=== PATIENT | female | born 1960 | race Caucasian/White ===

== ENCOUNTER 2024-07-05 12:47 | Inpatient (IN) ==
[~2024-07-05 12:47] MED LIST: Naloxone 0.4 mg VIAL 0.4 mg/ml 1 ml VIAL IV PRN; Ondansetron 4 mg VIAL 2 MG/ML 2 ml VIAL IV PRN
[2024-07-05] MEDS ORDERED: ceFAZolin 2 GM PREMIX 2 GM/50 ML BAG ONE (13:09)
[2024-07-05] MEDS ORDERED: Tranexamic Acid 1 GM/100ML BAG 2,000 MG/200 ML BAG IV ONE (13:09)
[2024-07-05] MEDS ORDERED: ROPIVACAINE 5 MG/ML 30 ML BTL (0.5%) ONE ×2 (13:40→14:15)
[2024-07-05] MEDS ORDERED: Dexamethasone IV 4 MG/ML VIAL 1 ml VIAL ONE ×2 (13:41→14:11)
[2024-07-05] MEDS ORDERED: fentaNYL 100 mcg/2 ml 50 MCG/ML VIAL ONE ×4 (13:41→17:42)
[2024-07-05] MEDS ORDERED: Midazolam 2 mg/2 ml VIAL 1 mg/ml 2 ml VIAL (2 mg) ONE ×2 (13:41→14:11)
[2024-07-05] MEDS ORDERED: ceFAZolin 1 GM in Dextrose 1 GM/50 ML BAG ONE (13:44)
[2024-07-05 13:51] LABS: Rapid COVID-19 Molecular Undetected (Undetected)
[2024-07-05] MEDS ORDERED: Lidocaine 2% PF 5 ML VIAL ONE ×2 (14:10→17:10)
[2024-07-05] MEDS ORDERED: Ondansetron 4 mg VIAL 2 MG/ML 2 ml VIAL ONE (14:11)
[2024-07-05] MEDS ORDERED: KETAMINE HCL 10 MG/ML 20 ml VIAL (200 MG) ONE (15:06)
[2024-07-05] MEDS ORDERED: Rocuronium 50 mg VIAL 10 mg/ml 5 ml VIAL (50 mg) ONE (15:42)
[2024-07-05] MEDS ORDERED: Propofol 10 MG/ML 20 ML BTL ONE (16:36)
[2024-07-05] MEDS ORDERED: Ondansetron 4 mg VIAL 2 MG/ML 2 ml VIAL IV PRN (16:37)
[2024-07-05] MEDS ORDERED: Calcium Carb (TUMS) 500 mg CHEW TAB PO PRN (16:37)
[2024-07-05] MEDS ORDERED: Lactulose 30 ml UDC PO PRN (16:37)
[2024-07-05] MEDS ORDERED: Magnesium Hydroxide LIQ 30 ML UDC PO PRN (16:37)
[2024-07-05] MEDS ORDERED: Morphine 2 MG/ML SYRINGE IV PRN (16:37)
[2024-07-05] MEDS: fentaNYL 100 mcg/2 ml 50 MCG/ML VIAL IV PRN (17:43)
[2024-07-05] MEDS ORDERED: Albuterol HFA INHALER 8 gm MDI INH PRN (18:06)
[2024-07-05] MEDS ORDERED: Dextrose 50% Syringe 50 ml 25 GM/50 ML SYRINGE IV PUSH PRN (18:08)
[2024-07-05] MEDS: Buffered Lidocaine 1% SYRIN 1 ml INTRADERM ONE (18:44)
[2024-07-05] MEDS: Acetaminophen IV 1 GM/100ML 1,000 MG/100 ML BAG IV ONE (18:44)
[2024-07-05] MEDS: Lactated Ringers 1000 ml BAG 1,000 ML IV SCH ×2 (18:44→19:22)
[2024-07-05] MEDS: Scopolamine 1 mg/72hr PATCH TRANSDERM ONE (18:44)
[2024-07-05] MEDS: Magnesium Hydroxide LIQ 30 ML UDC PO SCH (19:35)
[2024-07-05] MEDS: Mometasone/Formoter 100/5 MDI INH SCH (19:36)
[2024-07-05] MEDS: ceFAZolin 2 GM PREMIX 2 GM/50 ML BAG IV SCH (22:05)
[2024-07-06 06:16] LABS: Hematocrit 35.9 % (35-45); Hemoglobin 11.9 g/dL (11.5-14.3); Mean Platelet Volume 8.1 fL (7.5-11.2); Platelet Count 290 10^3/uL (150-450)
[2024-07-06 07:00] LABS: Calcium 8.7 mg/dL (8.6-10.3); Creatinine, Serum 0.9 mg/dL (0.51-0.95); Potassium 4.2 mmol/L (3.5-5.0); eGFR CKD-EPI 70.9 (>60)
[2024-07-06] MEDS: Ondansetron ODT 4 mg TAB 4 MG TAB PO PRN (07:38)
[2024-07-06] MEDS: Vitamin THERAPEUTIC TAB PO SCH (07:50)
[2024-07-06 13:53] VITALS: BP 101/51
== END 2024-07-06 16:35 | disposition home or self-care (01) | DRG 470 ==
LOC: OR 12:47 → SSU 12:47 → OBSVTOIN 16:37
PROVIDERS: ADMIT Nurse Practitioner Family; ATTEND Orthopaedic Surgery Adult Reconstructive Orthopaedic Surgery